=== PATIENT | male | born 1965 | race Two or more races ===

== ENCOUNTER 2020-08-16 12:26 | Emergency (ER) | payer MEDICAID, OTHER ==
[~2020-08-16] VITALS: Ht 175.3 cm; Wt 81.6 kg
[2020-08-16 13:14] VITALS: BP 136/92
[2020-08-16] MEDS ORDERED: FLUORESCEIN SOD OPTH TEST STRIP ONE (13:40)
[2020-08-16] MEDS ORDERED: TETRACAINE HCL 0.5% OPTH(EYE) SOLN 4ML ONE (13:40)
[2020-08-16] MEDS ORDERED: TETRACAINE HCL 0.5% OPTH(EYE) SOLN 4ML EACHEYE ONE (13:45)
[2020-08-16] MEDS ORDERED: FLUORESCEIN SOD OPTH TEST STRIP OP ONE (13:45)
== END 2020-08-16 14:50 | disposition home or self-care (01) ==
LOC: ER 12:26
DX: H00.011 Hordeolum externum right upper eyelid (principal); H00.012 Hordeolum externum right lower eyelid; H10.31 Unspecified acute conjunctivitis, right eye